=== PATIENT | female | born 1970 | race Caucasian/White ===

== ENCOUNTER 2016-11-15 17:55 | Emergency (ER) | payer OTHER ==
[~2016-11-15] VITALS: Ht 157.5 cm; Wt 127.3 kg
[~2016-11-15 17:55] MED LIST: CARI250T PO; CARI350T; CITA10SO5 GTB; FURO20TA3 PO; GABA300C16 PO; HYDR-3498 PO; LANS30CA PO; OLAN15TA3 PO; OXCA300O PO; OXYB10TA13 PO; [UNRECOGNIZED DRUG - CODE] PO
[2016-11-15 18:14] VITALS: Ht 157.5 cm; Wt 127.3 kg
[2016-11-15] MEDS ORDERED: PIPER-TAZO 3.375 GM IV (PMX) 100 ML IVPB ONE (22:00)
[2016-11-15] MEDS ORDERED: HYDROCODONE/APAP (5/325) TAB PO ONE (22:00)
--- NOTE | 2016-11-15 22:26 | ERD ---
ER Documentation Chief Complaint Date/Time DATE: 11/15/16 TIME: 22:21 Chief Complaint pt has left foot pain chronic pain 02/05 HPI This 38-year-old female presents the emergency department today complaining of left foot, swelling and drainage for the past month that is started getting worse yesterday. 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 States that she saw her primary care doctor Dr. Valadez who gave her penicillin and that she finished it yesterday. States her diabetes is well controlled per denies any fevers or chills. ROS All systems reviewed and are negative except as per history of present illness. Medications Home Meds Active Scripts Acetaminophen* (Tylophen*) 500 Mg Capsule, 1 CAP PO Q6H Y for PAIN AND OR ELEVATED TEMP, #30 CAP Prov:ARLENE FLOODC 11/15/16 Ibuprofen* (Motrin*) 800 Mg Tab, 800 MG PO Q6, #30 TAB Prov:ARLENE FLOODC 11/15/16 Sulfamethoxazole/Trimethoprim (Bactrim Ds Tablet) 1 Each Tablet, 1 EACH PO BID for 7 Days, TAB Prov:ARLENE FLOODC 11/15/16 Cephalexin* (Keflex*) 500 Mg Capsule, 500 MG PO QID for 5 Days, #7 CAP Prov:ARLENE FLOODC 11/15/16 Gabapentin* (Gabapentin*) 300 Mg Capsule, 300 MG PO TID, #90 CAP Prov:SWEETIE TAY MD 03/19/16 Reported Medications Carisoprodol* (Soma*) 250 Mg Tablet, 250 MG PO Q8, TAB 02/22/15 Hydrocodone Bit-Acetaminophen* ([place]*) 5-325 Mg Tab, 1 TAB PO Q4H Y for BACK AND LEG PAIN, TAB 02/22/15 Furosemide* (Furosemide*) 20 Mg Tablet, 20 MG PO DAILY, TAB 02/22/15 Oxybutynin Chloride* (Oxybutynin Chloride* ER) 10 Mg/Bottle Tab.osm.24, 10 MG PO DAILY, TAB.SA 02/22/15 Lansoprazole* (Lansoprazole*) 30 Mg Capsule.dr, 30 MG PO DAILY, CAP 02/22/15 Citalopram Hydrobromide (Citalopram) 10 Mg/5 Ml Solution, 20 MG GTB DAILY, ML 02/22/15 Olanzapine* (Zyprexa*) 15 Mg Tablet, 15 MG PO DAILY, TAB 02/22/15 Trazodone Hcl (Oleptro ER) 150 Mg Tab.sr.24h, 150 MG PO DAILY, TAB 02/22/15 Oxcarbazepine (Trileptal Liq) 300 Mg/5 Ml Oral.susp, 300 MG PO BID, ML 02/22/15 Carisoprodol* (Soma*) 350 Mg Tablet 07/12/10 Allergies Allergies: Uncoded Allergies: TYLENOLWITH CODEINE (Allergy, Severe, 02/22/15) RASHES , DIFFICULTY BREATHING PMhx/Soc History of Surgery: Yes (L orthapedic surgery) Anesthesia Reaction: No Hx Neurological Disorder: No Hx Respiratory Disorders: No Hx Cardiac Disorders: No Hx Psychiatric Problems: Yes (Bipolar Disorder) 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 Neck: Full range of motion..~ No meningismus. Resp: Clear to auscultation bilaterally Cardio: Regular rate and rhythm, no murmurs kin: Left foot with drainage from all toes and skin maceration between toes. Localized erythema and warmth. Ext: Left foot with localized erythema, warmth and swelling over dorsal aspect of left foot Neur: Awake and alert Psych: Normal Mood and Affect Results 24 hrs Current Medications Medications (Trade) Dose Ordered Sig/Veronica Route PRN Reason Start Time Stop Time Status Last Admin Dose Admin Piperacillin Sod/ Tazobactam Sod (Zosyn 3.375gm/ 100 ml (Pmx)) 100 ml @ 200 mls/hr ONCE ONCE IVPB 11/15/16 22:00 11/15/16 22:29 DC 11/15/16 22:39 Acetaminophen/ Hydrocodone Bitart ([place] (5325)) 1 tab ONCE ONCE PO 11/15/16 22:00 11/15/16 22:01 DC 11/15/16 22:38 Procedures/MDM This is a 46year-old female who presents the emergency department today for left foot redness, swelling and drainage from her foot. Patient indicated that she had had this problem for the past month and was taking penicillin and that this problem got worse yesterday. Patient indicates she had a new diagnosis of Buerger's disease. Patient has been seen here in the emergency department the past for multiple pain complaints. On physical exam patient did have evidence of some drainage from her left foot surrounding all of her toes. There was localized erythema and warmth with some dorsal foot swelling. Patient does have some skin maceration in between all of her toes as well. I did have the patient seen and evaluated by Dr. Zelaya who has recommended she receive Zosyn here in the emergency department. He does not feel that she requires laboratory workup at this time and he does not feel that she requires admission at this time. Patient is afebrile. She did have slight tachycardia. Patient symptoms at this time is consistent with cellulitis possibly secondary to her diabetes. patient be given a prescription for Bactrim and Keflex as well as Motrin and Tylenol. She was instructed to return in 48 hours for a wound check. At this time the patient is stable for discharge and outpatient management. Patient should follow up with their PCP in the next 1-2 days. They may return to the emergency department sooner for any persistent or worsening of symptoms. Patient understood and agreed with the plan. Departure Diagnosis: Primary Impression: Cellulitis Site of cellulitis: extremity Site of cellulitis of extremity: toe Laterality: left Qualified Code: L03.032 - Cellulitis of toe of left foot Condition: Fair ARLENE FLOOD PA-C Nov 15, 2016 22:26
[2016-11-15] MEDS ORDERED: CEPH-443 PO (23:38)
[2016-11-15] MEDS ORDERED: SULF1TAB31 PO (23:38)
[2016-11-15] MEDS ORDERED: IBUP800T25 PO (23:39)
[2016-11-15] MEDS ORDERED: ACET500C5 PO (23:39)
[2016-11-15 23:47] VITALS: BP 157/72; PULSE 88; RESP 16; TEMP 98.5
== END 2016-11-15 23:48 | disposition home or self-care (01) ==
LOC: FTE 17:55
DX: L03.032 Cellulitis of left toe (principal); E11.9 Type 2 diabetes mellitus without complications; Z87.891 Personal history of nicotine dependence
CPT/HCPCS: J2543; Z7610; 96365

== ENCOUNTER 2016-12-03 18:36 | Emergency (ER) | payer OTHER ==
[~2016-12-03] VITALS: Ht 160 cm; Wt 127.5 kg
[~2016-12-03 18:36] MED LIST changes: +ACET500C5 PO; +CEPH-443 PO; +IBUP800T25 PO; +SULF1TAB31 PO
[2016-12-03 18:39] VITALS: Ht 160 cm; Wt 127.5 kg
[2016-12-03] MEDS ORDERED: HYDROCODONE/APAP (5/325) TAB PO ONE (19:00)
[2016-12-03] MEDS ORDERED: PIPER-TAZO 3.375 GM IV (PMX) 100 ML IVPB ONE (19:00)
[2016-12-03] MEDS ORDERED: SULF1TAB31 PO (19:42)
[2016-12-03] MEDS ORDERED: CEPH-443 PO (19:42)
[2016-12-03] MEDS ORDERED: NAPR-260 PO (19:43)
--- NOTE | 2016-12-03 20:14 | ERD ---
ER Documentation Chief Complaint Date/Time DATE: 12/03/16 TIME: 20:10 Chief Complaint left plantar laceration x 5 days HPI Patient is a 46-year-old female with a past medical history of diabetes and recently diagnosed with Buerger's disease presents to the ED with a cut between her third and fourth left toe. She states that she was here 3 weeks ago and had multiple cuts and redness to her left foot. She states that she was given antibiotics. She states that the infection resolved however in the last 5 days she developed a cut to her toe. She states there is mild drainage from the cut. She denies difficulty walking or moving her ankle or foot. She denies calf pain or swelling. She states that she had a low-grade fever of 100.0 yesterday, no fevers today. She denies chest pain, cough, shortness of breath or difficulty breathing. She denies recent travel or recent surgeries. She denies abdominal pain, nausea, vomiting or diarrhea. She states that her blood sugars are controlled at home. She denies polyuria, polyphagia or polydipsia she has no other complaints. ROS All systems reviewed and are negative except as per history of present illness. Medications Home Meds Active Scripts Naproxen* (Naprosyn*) 500 Mg Tablet, 500 MG PO BID Y for PAIN AND/OR INFLAMMATION, #30 TAB Prov:CHET ARANA-C 12/03/16 Cephalexin* (Keflex*) 500 Mg Capsule, 500 MG PO QID for 5 Days, CAP Prov:CHET ARANA-C 12/03/16 Sulfamethoxazole/Trimethoprim* (Bactrim Ds* Tablet) 1 Each Tablet, 1 TAB PO BID , #14 TAB Prov:CHET ARANA-C 12/03/16 Acetaminophen* (Tylophen*) 500 Mg Capsule, 1 CAP PO Q6H Y for PAIN AND OR ELEVATED TEMP, #30 CAP Prov:ARLENE FLOODC 11/15/16 Ibuprofen* (Motrin*) 800 Mg Tab, 800 MG PO Q6, #30 TAB Prov:ARLENE FLOOD-C 11/15/16 Sulfamethoxazole/Trimethoprim* (Bactrim Ds* Tablet) 1 Each Tablet, 1 EACH PO BID for 7 Days, TAB Prov:ARLENE FLOOD PA-C 11/15/16 Cephalexin* (Keflex*) 500 Mg Capsule, 500 MG PO QID for 5 Days, #7 CAP Prov:ARLENE FLOOD PA-C 11/15/16 Gabapentin* (Gabapentin*) 300 Mg Capsule, 300 MG PO TID, #90 CAP Prov:SWEETIE TAY MD 03/19/16 Reported Medications Carisoprodol* (Soma*) 250 Mg Tablet, 250 MG PO Q8, TAB 02/22/15 Hydrocodone Bit-Acetaminophen* ([place]*) 5-325 Mg Tab, 1 TAB PO Q4H Y for BACK AND LEG PAIN, TAB 02/22/15 Furosemide* (Furosemide*) 20 Mg Tablet, 20 MG PO DAILY, TAB 02/22/15 Oxybutynin Chloride* (Oxybutynin Chloride* ER) 10 Mg/Bottle Tab.osm.24, 10 MG PO DAILY, TAB.SA 02/22/15 Lansoprazole* (Lansoprazole*) 30 Mg Capsule.dr, 30 MG PO DAILY, CAP 02/22/15 Citalopram Hydrobromide (Citalopram) 10 Mg/5 Ml Solution, 20 MG GTB DAILY, ML 02/22/15 Olanzapine* (Zyprexa*) 15 Mg Tablet, 15 MG PO DAILY, TAB 02/22/15 Trazodone Hcl (Oleptro ER) 150 Mg Tab.sr.24h, 150 MG PO DAILY, TAB 02/22/15 Oxcarbazepine (Trileptal Liq) 300 Mg/5 Ml Oral.susp, 300 MG PO BID, ML 02/22/15 Carisoprodol* (Soma*) 350 Mg Tablet 07/12/10 Allergies Allergies: Coded Allergies: codeine (Verified Allergy, Unknown, 12/03/16) Uncoded Allergies: TYLENOLWITH CODEINE (Allergy, Severe, 02/22/15) RASHES , DIFFICULTY BREATHING PMhx/Soc History of Surgery: Yes (L orthapedic surgery) Anesthesia Reaction: No Hx Neurological Disorder: No Hx Respiratory Disorders: No Hx Cardiac Disorders: No Hx Psychiatric Problems: Yes (Bipolar Disorder) 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 Appears in no acute distress. LUNG: Clear to auscultation bilaterally. No rhonchi, wheezing, rales or coarse breath sounds. HEART: Regular rate and rhythm. No murmurs, rubs or gallops. Extremities: Equal pulses bilaterally. No peripheral clubbing, cyanosis or edema. No unilateral leg swelling. Negative Homans sign. There is a small wound with draining pus in between her left third and fourth digit. There is mild swelling to her left foot. No streaking or erythema. Nontender. Range of motion intact. Pulses intact bilaterally. No deformities or step-offs. NEUROLOGIC: Alert and oriented. Moving all four extremities. 5/5 strength in all extremities. Normal speech. Steady gait. SKIN: Normal color. Warm and dry. No rashes or lesions. Capillary refill < 2 seconds Results 24 hrs Current Medications Medications (Trade) Dose Ordered Sig/Veronica Route PRN Reason Start Time Stop Time Status Last Admin Dose Admin Piperacillin Sod/ Tazobactam Sod (Zosyn 3.375gm/ 100 ml (Pmx)) 100 ml @ 200 mls/hr ONCE ONCE IVPB 12/03/16 19:00 12/03/16 19:29 DC 12/03/16 19:39 Acetaminophen/ Hydrocodone Bitart ([place] (5/325)) 1 tab ONCE ONCE PO 12/03/16 19:00 12/03/16 19:02 DC 12/03/16 19:23 Procedures/MDM ER COURSE: I kept the patient and/or family informed of laboratory and diagnostic imaging results throughout the emergency room course. MEDICATIONS zosyn, norco. Tolerated well with no adverse reaction. MEDICAL DECISION MAKING: This is a 46-year-old female who presents with left foot infection 5 days. Vital signs were reviewed. Patient is afebrile. Patient is not hypoxic. Patient is nontoxic or ill-appearing. I consulted with Dr. Zelaya regarding this patient who stated that patient should receive Zosyn here in the ER and can be discharged with antibiotics. Patient does not have tachycardia and is afebrile. She does not need further laboratory workup and does not require admission at this time. Patient likely has cellulitis. Low suspicion for necrotizing fasciitis, SJS, toxic epidermal necrolysis, Kawasaki, erythema multiforme, gangrene, scarlet fever, meningococcemia, sepsis, anaphylaxis, sepsis, deep space infection, or foreign body. Low suspicion for dislocation, fracture, septic joint, compartment syndrome, osteomyelitis, avascular necrosis , DVT, Achilles tendon rupture, cellulitis. At this time, unable to rule out any tendon and ligament injuries. DISCHARGE: At this time, patient is stable for discharge and outpatient management with no new complaints during the ER course. Patient was sent home with Bactrim, Keflex and Naprosyn and to follow-up with her primary care in 1-2 days.. Patient will be discharged home with instructions to recheck for new or worsening symptoms such as fever, nausea, weakness, LOC and to follow up with primary care in the next 1-2 days. Patient was advised to return to the ER for any new or worsening symptoms. Plan was discussed and patient and/or family understands and agrees. Home instructions were given. Departure Diagnosis: Primary Impression: Cellulitis Site of cellulitis: extremity Site of cellulitis of extremity: toe Laterality: left Qualified Code: L03.032 - Cellulitis of toe of left foot Condition: Stable Patient Instructions: Cellulitis Additional Instructions: Call your primary care doctor TOMORROW for an appointment during the next 1-2 days.See the doctor sooner or return here if your condition worsens before your appointment time. CHET ARANA PA-C December 03, 2016 20:14
[2016-12-03 20:15] VITALS: BP 150/99; PULSE 93; RESP 16
== END 2016-12-03 20:26 | disposition home or self-care (01) ==
LOC: FTE 18:36
DX: L03.032 Cellulitis of left toe (principal); E11.9 Type 2 diabetes mellitus without complications; F17.210 Nicotine dependence, cigarettes, uncomplicated
CPT/HCPCS: 96374; J2543; Z7502; Z7610

== ENCOUNTER 2017-01-09 20:41 | Emergency (ER) | payer OTHER ==
[~2017-01-09] VITALS: Ht 162.6 cm; Wt 125.0 kg
[~2017-01-09 20:41] MED LIST changes: +NAPR-260 PO
[2017-01-09 20:43] VITALS: Ht 162.6 cm; Wt 125.0 kg
[2017-01-10] MEDS ORDERED: SOD CHLORIDE 0.9% 1,000 ML IV STA (01:57)
[2017-01-10] MEDS ORDERED: ONDANSETRON 4 MG INJ IV ONE (02:23)
[2017-01-10] MEDS ORDERED: DIPHENHYDRAMINE 50 MG INJ IV ONE (02:30)
[2017-01-10 02:53] LABS: ADD SCAN DIFF NO
[2017-01-10 03:01] LABS: BASOPHIL # 0.1 10^3/ul (0.0-0.1); BASOPHILS % 0.3 % (0.0-2.0); EOSINOPHILS # 0.2 10^3/ul (0.0-0.5); HEMATOCRIT 45.8 % (37.0-47.0); HEMOGLOBIN 15.4 g/dl (12.0-16.0); LYMPHOCYTES # 3.6 10^3/ul (0.8-2.9); LYMPHOCYTES % 24.8 % (15.0-51.0); MEAN CORPUSCULAR HEMOGLOBIN 28.7 pg (29.0-33.0); MEAN CORPUSCULAR HGB CONC 33.6 g/dl (32.0-37.0); MEAN CORPUSCULAR VOLUME 85.4 fl (82.0-101.0); MEAN PLATELET VOLUME 11.6 fl (7.4-10.4); MONOCYTE # 0.7 10^3/ul (0.3-0.9); NEUTROPHIL # 9.8 10^3/ul (1.6-7.5); NEUTROPHILS % 68.6 % (39.0-77.0); PLATELET COUNT 366 10^3/UL (140-415); RED BLOOD COUNT 5.36 10^6/ul (4.20-5.40); RED CELL DISTRIBUTION WIDTH 14.6 % (11.5-14.5); WHITE BLOOD COUNT 14.3 10^3/ul (4.8-10.8)
--- NOTE | 2017-01-10 03:07 | RADRPT ---
PROCEDURE: CHEST - 1 VIEW CLINICAL INDICATION: 46-year-old female with headaches. TECHNIQUE: A single frontal AP upright portable view of the chest was performed. The images were reviewed on a PACS workstation. COMPARISON: None. FINDINGS: There is a shallow inspiration accentuating the heart size. Accounting for this, the cardiomediasti nal silhouette is within normal limits. There is mild bibasilar subsegmental atelectasis. There is no evidence for an infiltrate. There is no evidence for congestive heart failure. There is no evid ence for pneumothorax. The osseous structures are intact. IMPRESSION: Shallow inspiration with mild bibasilar subsegmental atelectasis. .Josh Corrales MD, MD Date Time Electronically viewed and signed by .Josh Corrales MD, on 01/10/2017 03:07 .Tarun/
[2017-01-10] MEDS ORDERED: CHRM1TAB PO (03:08)
--- NOTE | 2017-01-10 03:09 | RADRPT ---
PROCEDURE: CT Brain without contrast. CLINICAL INDICATION: Headache TECHNIQUE: A CT of the brain was performed utilizing axial imaging from the skull base through the vertex without IV contrast. Multiplanar reformatted images were made. Images were reviewed on a [employer] workstation. The CTDIvol is 42.3 mGy and the DLP is 720.23 mGycm. One or more the following dose reduction techniques were utilized: Automated exposure control, adjus tment of the mA and / or kV according to patient's size, or use of iterative reconstruction techniqu e. COMPARISON: None FINDINGS: There is no intracranial hemorrhage, mass effect, or midline shift. No extra-axial fluid collection is seen. The ventricles and sulci are normal in size and configuration. Beam-hardening artifact pro jected over the bases of the anterior temporal lobes bilaterally limiting evaluation. Otherwise, the brizuela white matter differentiation appears preserved. The visualized paranasal sinuses and osseous structures are grossly unremarkable. IMPRESSION: Beam-hardening artifact projected over the bases of the anterior temporal lobes bilaterally limiting evaluation. Otherwise, no acute abnormality seen. RPTAT: HJES .Manuel Gavin MD, MD Date Time Electronically viewed and signed by .Manuel Gavin MD, MD on 01/10/2017 03:09 .S/
[2017-01-10 03:16] LABS: INR 1.01; PROTIME 13.3 Sec (12.2-14.2)
[2017-01-10 03:17] LABS: PARTIAL THROMBOPLASTIN TIME 28.4 Sec (25.0-35.0)
[2017-01-10 03:26] LABS: ANION GAP 12 (8-16); BLOOD UREA NITROGEN 14 mg/dl (7-20); CALCIUM 9.2 mg/dl (8.4-10.2); CARBON DIOXIDE 26 mmol/L (21-31); CHLORIDE 106 mmol/L (97-110); CREATININE 0.84 mg/dl (0.44-1.00); GLUCOSE 110 mg/dl (70-220); POTASSIUM 3.6 mmol/L (3.5-5.1); SODIUM 140 mmol/L (135-144)
[2017-01-10 03:55] LABS: TROPONIN-I < 0.012 ng/ml (0.00-0.12)
--- NOTE | 2017-01-10 05:37 | ERD ---
ER Documentation Chief Complaint Date/Time DATE: 01/10/17 TIME: 05:36 Chief Complaint unsteady gait,headache, nausea, chest pain HPI 38 a few months that he had any nausea palpitations after starting plasma earlier today. She denies any focal neurologic complaints. She denies any fevers or chills. She denies any vomiting. She denies any other current issues ROS All systems reviewed and are negative except as per history of present illness. Medications Home Meds Active Scripts Sulfamethoxazole/Trimethoprim* (Bactrim Ds* Tablet) 1 Each Tablet, 1 TAB PO BID , #14 TAB Prov:CHET ARANAC 12/03/16 Acetaminophen* (Tylophen*) 500 Mg Capsule, 1 CAP PO Q6H Y for PAIN AND OR ELEVATED TEMP, #30 CAP Prov:ARLENE FLOOD PA-C 11/15/16 Ibuprofen* (Motrin*) 800 Mg Tab, 800 MG PO Q6, #30 TAB Prov:ARLENE FLOOD PA-C 11/15/16 Gabapentin* (Gabapentin*) 300 Mg Capsule, 300 MG PO TID, #90 CAP Prov:SWEETIE TAY MD 03/19/16 Reported Medications Chrm/Silvana/ Bt-Org Peel/Gr T (Apple Cider Vinegar Plus Tb) 1 Each Tablet, 1 EACH PO, TAB 01/10/17 Trazodone Hcl (Oleptro ER) 150 Mg Tab.sr.24h, 150 MG PO DAILY, TAB 02/22/15 Discontinued Reported Medications Carisoprodol* (Soma*) 250 Mg Tablet, 250 MG PO Q8, TAB 02/22/15 Hydrocodone Bit-Acetaminophen* ([place]*) 5-325 Mg Tab, 1 TAB PO Q4H Y for BACK AND LEG PAIN, TAB 02/22/15 Furosemide* (Furosemide*) 20 Mg Tablet, 20 MG PO DAILY, TAB 02/22/15 Oxybutynin Chloride* (Oxybutynin Chloride* ER) 10 Mg/Bottle Tab.osm.24, 10 MG PO DAILY, TAB.SA 02/22/15 Lansoprazole* (Lansoprazole*) 30 Mg Capsule.dr, 30 MG PO DAILY, CAP 02/22/15 Citalopram Hydrobromide (Citalopram) 10 Mg/5 Ml Solution, 20 MG GTB DAILY, ML 02/22/15 Olanzapine* (Zyprexa*) 15 Mg Tablet, 15 MG PO DAILY, TAB 02/22/15 Oxcarbazepine (Trileptal Liq) 300 Mg/5 Ml Oral.susp, 300 MG PO BID, ML 02/22/15 Carisoprodol* (Soma*) 350 Mg Tablet 07/12/10 Discontinued Scripts Naproxen* (Naprosyn*) 500 Mg Tablet, 500 MG PO BID Y for PAIN AND/OR INFLAMMATION, #30 TAB Prov:CHET ARANA-C 12/03/16 Cephalexin* (Keflex*) 500 Mg Capsule, 500 MG PO QID for 5 Days, CAP Prov:CHET ARANA-C 12/03/16 Sulfamethoxazole/Trimethoprim* (Bactrim Ds* Tablet) 1 Each Tablet, 1 EACH PO BID for 7 Days, TAB Prov:ARLENE FLOOD-C 11/15/16 Cephalexin* (Keflex*) 500 Mg Capsule, 500 MG PO QID for 5 Days, #7 CAP Prov:ARLENE FLOOD-C 11/15/16 Allergies Allergies: Coded Allergies: codeine (Unverified Allergy, Unknown, 01/10/17) Uncoded Allergies: TYLENOLWITH CODEINE (Allergy, Severe, 02/22/15) RASHES , DIFFICULTY BREATHING PMhx/Soc History of Surgery: Yes (L orthapedic surgery, hysterectomy) Anesthesia Reaction: No Hx Neurological Disorder: No Hx Respiratory Disorders: No Hx Cardiac Disorders: No Hx Psychiatric Problems: Yes (Bipolar Disorder) 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 Neck: Full range of motion..~ No meningismus. Resp: Clear to auscultation bilaterally Cardio: Regular rate and rhythm, no murmurs Abd: Soft, non tender, non distended. Normal bowel sounds Skin: No petechiae or rashes Back: No midline or flank tenderness Ext: No cyanosis, or edema Neur: Awake and alert Psych: Normal Mood and Affect Result Diagram: 01/10/1721501/10/17 0216 Results 24 hrs Laboratory Tests Test 01/10/17 02:16 White Blood Count 14.310^3/ul Red Blood Count 5.3610^6/ul Hemoglobin 15.4g/dl Hematocrit 45.8% Mean Corpuscular Volume 85.4fl Mean Corpuscular Hemoglobin 28.7pg Mean Corpuscular Hemoglobin Concent 33.6g/dl Red Cell Distribution Width 14.6% Platelet Count 37267^3/UL Mean Platelet Volume 11.6fl Neutrophils % 68.6% Lymphocytes % 24.8% Monocytes % 5.0% Eosinophils % 1.0% Basophils % 0.3% Nucleated Red Blood Cells % 0.0/100WBC Neutrophils # 9.810^3/ul Lymphocytes # 3.610^3/ul Monocytes # 0.710^3/ul Eosinophils # 0.210^3/ul Basophils # 0.110^3/ul Nucleated Red Blood Cells # 0.010^3/ul Prothrombin Time 13.3Sec Prothrombin Time Ratio 1.0 INR International Normalized Ratio 1.01 Activated Partial Thromboplast Time 28.4Sec Sodium Level 140mmol/L Potassium Level 3.6mmol/L Chloride Level 106mmol/L Carbon Dioxide Level 26mmol/L Anion Gap 12 Blood Urea Nitrogen 14mg/dl Creatinine 0.84mg/dl Glucose Level 110mg/dl Calcium Level 9.2mg/dl Troponin I < 0.012ng/ml Current Medications Medications (Trade) Dose Ordered Sig/Veronica Route PRN Reason Start Time Stop Time Status Last Admin Dose Admin Sodium Chloride (NS) 1,000 ml @ 1,000 mls/hr Q1H STAT IV 01/10/17 01:57 01/10/17 02:56 DC 01/10/17 02:33 Diphenhydramine HCl (Benadryl) 50 mg ONCE ONCE IV 01/10/17 02:30 01/10/17 02:31 DC 01/10/17 02:33 Ondansetron HCl (Zofran Inj) 4 mg ONCE ONCE IV 01/10/17 02:23 01/10/17 02:24 DC 01/10/17 02:33 Procedures/MDM EKG: Rate/Rhythm: Normal Sinus Rhythm QRS, ST, T-waves: No changes consistent w/ acute ischemia Impression: No evidence of ischemia or arrhythmia Chest X-ray 1V Interpreted by me: Soft Tissue: No acute abnormalities Bones: No acute abnormalities Mediastinum/Cardiac Silhouette/Lungs: No acute abnormalities Medical decision-makin-year-old female such comes in essentially for palpitations weakness and anxiety after doing positive. Her symptoms resolved. At this point is clinically stable. Patient will be discharged home. Departure Diagnosis: Primary Impression: Anxiety Additional Impression: Myalgia Condition: Stable DINAH RDZ Jan 10, 2017 05:37
[2017-01-10 06:27] LABS: BARBITURATES Negative (NEGATIVE); BENZODIAZEPINES Negative (NEGATIVE); COCAINE Negative (NEGATIVE); OPIATES Negative (NEGATIVE)
[2017-01-10 08:15] LABS: CANNABINOIDS Negative (NEGATIVE)
== END 2017-01-10 05:58 | disposition home or self-care (01) ==
LOC: E/R 20:41
DX: F41.9 Anxiety disorder, unspecified (principal); M79.1 Myalgia; E11.9 Type 2 diabetes mellitus without complications; F17.210 Nicotine dependence, cigarettes, uncomplicated; R11.0 Nausea; R07.9 Chest pain, unspecified
CPT/HCPCS: 36415; 70450; 71010; 80048; 80307; 84484; 85025; 85610; 85730; 93005; 96374; 96375; J1200; J2405; J7030; Z7502

== ENCOUNTER 2017-08-20 14:20 | Emergency (ER) | END 2017-08-20 19:24 | disposition left against medical advice (07) ==